=== PATIENT | female | born 1985 | race Caucasian/White ===

== ENCOUNTER → 2018-11-16 | Outpatient (CLI) | payer BC ==
[~2018-11-16] MED LIST: Calcium 600 +1 EAC1 PO; FOLI400 PO; IRON150C; K-Dur20 MEQ PO; PRENATA CHEWAB1 EACH PO; PYRI100 PO; Sprintec1 EACH PO
== END | disposition home or self-care (01) ==
LOC: LAB SHORT 16:34 → LAB 16:34
DX: Z34.83 Encounter for supervision of other normal pregnancy, third trimester (principal); Z3A.36 36 weeks gestation of pregnancy
CPT/HCPCS: 87081; 87653

== ENCOUNTER 2018-12-07 16:25 | Inpatient (IN) | payer BC ==
[~2018-12-07] VITALS: Ht 160 cm; Wt 0.3 kg
[~2018-12-07 16:25] MED LIST changes: -Calcium 600 +1 EAC1 PO; -FOLI400 PO; -IRON150C; -PRENATA CHEWAB1 EACH PO; -PYRI100 PO
[2018-12-07] MEDS ORDERED: PRENATA CHEWAB1 EACH PO (17:00)
[2018-12-07] MEDS ORDERED: IRON150C (17:00)
[2018-12-07] MEDS ORDERED: Calcium 600 +1 EAC1 PO (17:01)
[2018-12-07] MEDS ORDERED: FOLI400 PO (17:01)
[2018-12-07] MEDS ORDERED: PYRI100 PO (17:02)
[2018-12-07 17:34] LABS: BASOPHILS ABSOLUTE AUTO 0.03 K/mm3 (0.00-0.23); BASOPHILS PERCENT AUTO 0 % (0-2); EOSINOPHILS ABSOLUTE AUTO 0.05 K/mm3 (0.00-0.68); EOSINOPHILS PERCENT AUTO 1 % (0-6); Hematocrit 32.8 % (33.0-51.0); Hemoglobin 10.9 g/dL (11.5-16.0); IMMATURE GRAN ABSOLUTE AUTO 0.07 K/mm3 (0.00-0.10); IMMATURE GRAN PERCENT AUTO 1 % (0-1); LYMPHOCYTES ABSOLUTE AUTO 1.64 K/mm3 (0.84-5.20); LYMPHOCYTES PERCENT AUTO 23 % (21-46); MONOCYTES ABSOLUTE AUTO 0.52 K/mm3 (0.16-1.47); MONOCYTES PERCENT AUTO 7 % (4-13); Mean Corpuscular HGB 27.9 pg (26.0-34.0); Mean Corpuscular HGB Conc 33.2 g/dL (31.5-36.5); Mean Corpuscular Volume 84 fL (80-100); Mean Platelet Volume 10.4 fL (9.1-12.4); NEUTROPHILS ABSOLUTE AUTO 4.92 K/mm3 (1.96-9.15); NEUTROPHILS PERCENT AUTO 68 % (41-73); Platelet Count 179 K/mm3 (150-400); RDW Coefficient Variation 14.8 % (11.7-14.2); RDW Standard Deviation 45.1 fL (35.1-46.3); Red Blood Cell Count 3.91 M/mm3 (3.80-5.20); White Blood Cell Count 7.23 K/mm3 (4.00-11.30)
--- NOTE | 2018-12-07 22:45 | NUR ---
ASSUMED CARE AT 2200. FUNDUS FIRM, SMALL AMT OF BLEEDING
[2018-12-08 05:39] LABS: BASOPHILS ABSOLUTE AUTO 0.03 K/mm3 (0.00-0.23); BASOPHILS PERCENT AUTO 0 % (0-2); EOSINOPHILS ABSOLUTE AUTO 0.04 K/mm3 (0.00-0.68); EOSINOPHILS PERCENT AUTO 0 % (0-6); Hematocrit 31.1 % (33.0-51.0); Hemoglobin 10.3 g/dL (11.5-16.0); IMMATURE GRAN ABSOLUTE AUTO 0.08 K/mm3 (0.00-0.10); IMMATURE GRAN PERCENT AUTO 1 % (0-1); LYMPHOCYTES ABSOLUTE AUTO 2.24 K/mm3 (0.84-5.20); LYMPHOCYTES PERCENT AUTO 17 % (21-46); MONOCYTES ABSOLUTE AUTO 0.99 K/mm3 (0.16-1.47); MONOCYTES PERCENT AUTO 8 % (4-13); Mean Corpuscular HGB 28.4 pg (26.0-34.0); Mean Corpuscular HGB Conc 33.1 g/dL (31.5-36.5); Mean Corpuscular Volume 86 fL (80-100); Mean Platelet Volume 10.3 fL (9.1-12.4); NEUTROPHILS ABSOLUTE AUTO 9.58 K/mm3 (1.96-9.15); NEUTROPHILS PERCENT AUTO 74 % (41-73); Platelet Count 161 K/mm3 (150-400); RDW Coefficient Variation 14.9 % (11.7-14.2); RDW Standard Deviation 45.3 fL (35.1-46.3); Red Blood Cell Count 3.63 M/mm3 (3.80-5.20); White Blood Cell Count 12.96 K/mm3 (4.00-11.30)
--- NOTE | 2018-12-08 14:31 | NUR ---
CONSULT. PLANNING ON GOING HOME THIS EVENING. BABY AT BREAST CURRENTLY, SMALL COMPRESSION STRIP ALONG WITH FLATTENED LOWER NIPPLE UPON RELEASE. INSTRUCT/DEMO POSITIONING TO ASSIST A DEEPER ASYMETRIC LATCH AND THEN FURTHER WIDEN THE LATCH UNTIL COMFORTABLE, BOTH IN X CRADLE AND FOOTBALL POSITIONS. INSTRUCT IN CHANGES TO EXPECT DURING THE FIRST WEEK WITH FEEDINGS AND WITH BABY AND REFERRED TO [facility] AND PAGE 18 OF [facility], FOR PHOTOS AND INFORMATION. MANY QUESTIONS ANSWERED.
--- NOTE | 2018-12-09 11:45 | NUR ---
No acute changes this shift. MMR given. Pt denies any additional questions concerns. Pt d/c'd home ambulatory to care of .
== END 2018-12-09 11:45 | disposition home or self-care (01) | DRG 807 ==
LOC: OBS 16:25 → BC 16:32
PROVIDERS: ADMIT Obstetrics & Gynecology
PROC: 10E0XZZ Delivery of Products of Conception, External Approach (ICD-10-PCS; principal; 2018-12-07)
PROC: 3E0R3BZ Introduction of Anesthetic Agent into Spinal Canal, Percutaneous Approach (ICD-10-PCS; 2018-12-07)
PROC: 3E0234Z Introduction of Serum, Toxoid and Vaccine into Muscle, Percutaneous Approach (ICD-10-PCS; 2018-12-09)
DX: O70.0 First degree perineal laceration during delivery (principal); Z37.0 Single live birth; Z3A.39 39 weeks gestation of pregnancy; Z23 Encounter for immunization
CPT/HCPCS: 36415; 51702; 85025; 85460; 90471; 90707; 96372; J1885; J2590; J2790; J7120